=== PATIENT | female | born 1965 | race Caucasian/White ===

== ENCOUNTER → 2017-07-18 | Outpatient (CLI) | payer OTHER ==
[~2017-07-18] VITALS: Ht 160 cm; Wt 65.6 kg
[~2017-07-18] MED LIST: ASAC800T PO; CHLORHEXIDINE GLUCONATE 2 % 1 PACK (2 CLOTHS) TOPICAL PRN; ESTR1TAB PO; INSULIN HUMAN REGULAR 1,000 UNITS/10 ML VIAL SQ PRN; LACTATED RINGER'S 1000 ML IV PRN; LIDOCAINE HCL 1% PF 5 ML SYRINGE OTHER ONE; MEDR2.5 PO; METO1TAB42 PO; METOPROLOL TARTRATE 25 MG TAB PO PRN; POVIDONE IODINE 5% (ANTISEPSIS KIT) 4 APPLICATIONS EACH NARE PRN; PROPOFOL 200 MG/20 ML AMP IV ONE; SODIUM CHLORID 0.9% 500 ML IV PRN; TURM500C7 PO
--- NOTE | 2017-07-18 12:13 | GIPROC ---
[facility] [address] [facility]. [facility], [address] COLONOSCOPY PROCEDURE REPORT EXAM DATE: 07/18/2017 PATIENT NAME: Carol Ann Patel MR #: [id number] BIRTHDATE: 1965 ENDOSCOPIST: Shashi Peres MD ORDER #: [id number] FREEZING MACHINE OPERATOR: Magalis Alonso and Cesar Jeffrey STATUS: outpatient INDICATIONS: The patient is a 52 yr old female here for a colonoscopy due to ulcerative colitis since the ; symptoms are controlled now with routine use of Asacol. She passes 2-3 formed stools per day. PROCEDURE PERFORMED: Colonoscopy with biopsy MEDICATIONS: Per Anesthesia and None. PREP QUALITY: excellent ESTIMATED BLOOD LOSS: None CONSENT: The patient understands the risks and benefits of the procedure and understands that these risks include, but are not limited to: sedation, allergic reaction, infection, perforation and/or bleeding. Alternative means of evaluation and treatment include, among others: physical exam, x-rays, and/or surgical intervention. The patient elects to proceed with this endoscopic procedure. medical equipment was checked for proper function. Hand hygiene and appropriate measures for infection prevention was taken. After the risks, benefits and alternatives of the procedure were thoroughly explained, Informed consent was verified, confirmed and timeout was successfully executed by the treatment team. A digital exam was performed and revealed no abnormalities of the rectum The Pentax EC-[id number] endoscope was introduced through the anus and advanced to the cecum, which was identified by both the appendix and ileocecal valve. The instrument was then slowly withdrawn as the colon was fully examined. COLON FINDINGS: The colonic mucosa appeared normal. Multiple random biopsies of the area were performed. Two biopsies were taken every five cm, per surveillance. Retroflexion was performed and was normal The scope was then completely withdrawn from the patient and the procedure terminated. PROCEDURE WITHDRAWAL TIME:12minutes ADVERSE EVENTS: There were no complications. IMPRESSIONS: 1. The colonic mucosa appeared normal; multiple random biopsies of the area were performed 2. Retroflexion was performed and was normal 3. Was performed 4. Revealed no abnormalities of the rectum RECOMMENDATIONS: Continue prior diet/medications. Will contact patient with biopsy results. Repeat surveillance exam in one year. RECALL: Shashi Peres MD eSigned: Shashi Peres MD 07/18/2017 12:13 PM cc: Grant Gray M.D.
[2017-07-18 12:20] VITALS: TEMP 97.5
[2017-07-18 12:50] VITALS: BP 121/80; PULSE 70; RESP 16; O2SAT 99
--- NOTE | 2017-07-18 22:07 | EKG ---
Date Performed: 07/18/2017 Time Performed: 10:18:17 PTAGE: 52 years EKG: Sinus rhythm MARKED LEFT AXIS DEVIATION LEFT BUNDLE BRANCH BLOCK ABNORMAL ECG NO PREVIOUS TRACING DOCTOR: Keyur James Interpretating Date/Time 07/18/2017 22:06:00
== END ==
LOC: HEND 09:31
DX: K51.90 Ulcerative colitis, unspecified, without complications (principal); I10 Essential (primary) hypertension; Z01.810 Encounter for preprocedural cardiovascular examination
CPT/HCPCS: 88305; 93005